=== PATIENT | male | born 1985 | race Caucasian/White ===

== ENCOUNTER 2017-08-09 21:21 | Emergency (ER) | payer BC ==
[~2017-08-09] VITALS: Ht 193 cm; Wt 95.3 kg
[2017-08-09] MEDS ORDERED: NORCO 5-325 TA1 EACH PO (23:03)
== END 2017-08-09 23:25 | disposition home or self-care (01) ==
LOC: ED 21:21
DX: S92.252A Displaced fracture of navicular [scaphoid] of left foot, initial encounter for closed fracture (principal); X50.9XXA Other and unspecified overexertion or strenuous movements or postures, initial encounter
CPT/HCPCS: 73610; 73630; 99283

== ENCOUNTER 2021-02-28 16:12 | Emergency (ER) | payer BC ==
[~2021-02-28] VITALS: Ht 193 cm; Wt 99.8 kg
[~2021-02-28 16:12] MED LIST: NORCO 5-325 TA1 EACH PO
[2021-02-28] MEDS ORDERED: HYDROCODON-ACE1 EA10 PO (16:50)
== END 2021-02-28 17:00 | disposition home or self-care (01) ==
LOC: ED 16:12
DX: L55.1 Sunburn of second degree (principal)
CPT/HCPCS: 99282

== ENCOUNTER 2021-12-25 11:52 | Emergency (ER) | payer BC ==
[~2021-12-25] VITALS: Ht 193 cm; Wt 97.5 kg
[~2021-12-25 11:52] MED LIST changes: +HYDROCODON-ACE1 EA10 PO
== END 2021-12-25 14:53 | disposition home or self-care (01) ==
LOC: ED 11:52
DX: B34.9 Viral infection, unspecified (principal); Z20.822 Contact with and (suspected) exposure to COVID-19
CPT/HCPCS: 36415; 80053; 85025; 87502; 96374; 99284-25; A9270; C9803; J1885; J7030; U0003